=== PATIENT | female | born 1960 | race Caucasian/White ===

== ENCOUNTER 2022-11-11 05:11 | Day surgery (SDC) | payer MEDICAID ==
[2022-11-10 11:58] LABS: COVID AG,FIA SOURCE NASOPHARYNGEAL
[~2022-11-11] VITALS: Ht 157.5 cm; Wt 84.1 kg
[~2022-11-11 05:11] MED LIST: ACET325S20 PR; ALLO-97 PO; ASPI-1450 PO; DIPH-1243 PO; DOCU-350 PO; ESCI-8 PO; EVER0.5T3 PO; FERR325T27 PO; GABA-1216 PO; INSNOV SQ; LEVO150 PO; LIDO1ADH83 TP; LORA10TA7 PO; MAGN400T53 PO; MAGN400T57 PO; METO2.5T4 PO; OMEP20 PO; POLY17PO47 PO; POTA-206 PO; PRAV40TA4 PO; SENN-187 PO; TACR0.75 PO; TORS100T16 PO; TRIA15CR49 TP
[2022-11-11] MEDS ORDERED: FentaNYL CITRATE PF 100 MCG/2 ML VIAL IVP ONE (05:12)
[2022-11-11] MEDS ORDERED: MIDAZOLAM HCL 2 MG/2 ML VIAL IVP ONE (05:12)
[2022-11-11] MEDS ORDERED: MOXIFLOXACIN HCL 0.5% 3 ML OPHTHALMIC SOLUTION ONE (05:25)
[2022-11-11] MEDS ORDERED: TETRACAINE HCL/PF 0.5% 4 ML OPHTHALMIC SOLUTION ONE (05:25)
[2022-11-11] MEDS ORDERED: RINGERS SOLUTION,LACTATED 500 ML IV ONE ×2 (05:25→06:30)
[2022-11-11] MEDS ORDERED: PHENYLEPHRINE HCL 2.5% 2 ML OPHTHALMIC SOLUTION ONE (05:25)
[2022-11-11] MEDS ORDERED: MOXIFLOXACIN HCL 0.5% 3 ML OPHTHALMIC SOLUTION OS ONE (05:30)
[2022-11-11] MEDS ORDERED: TETRACAINE HCL/PF 0.5% 4 ML OPHTHALMIC SOLUTION OS ONE (05:30)
[2022-11-11] MEDS ORDERED: PHENYLEPHRINE HCL 2.5% 2 ML OPHTHALMIC SOLUTION OS ONE (05:30)
[2022-11-11] MEDS ORDERED: MitoMYcin 0.2 MG/VIAL KIT FOR OPHTHALMIC USE OS ONE ×2 (05:30→05:45)
[2022-11-11 06:26] LABS: GLUCOMETER DEV NAME(LOC) SDS.; GLUCOSE,POINT OF CARE 121 MG/DL (70-110)
[2022-11-11] MEDS ORDERED: ACETAMINOPHEN 325 MG TABLET PO PRN (07:30)
== END 2022-11-11 08:00 | disposition home or self-care (01) ==
LOC: SURGERY 05:11
PROVIDERS: ATTEND Ophthalmology
DX: H11.002 Unspecified pterygium of left eye (principal); Z79.899 Other long term (current) drug therapy; Z20.822 Contact with and (suspected) exposure to COVID-19; E11.9 Type 2 diabetes mellitus without complications; D64.9 Anemia, unspecified; Z98.890 Other specified postprocedural states; Z79.4 Long term (current) use of insulin
CPT/HCPCS: 93005; 87426; 65426; 82962; C9803; J3010; J2250; Q9967; J7120